=== PATIENT | female | born 1945 | race Caucasian/White ===

== ENCOUNTER 2017-02-24 10:30 | Outpatient (CLI) | payer MEDICARE, BC ==
--- NOTE | 2017-02-28 17:45 | Mammography Report ---
DIGITAL SCREENING MAMMOGRAM: 02/24/2017 CLINICAL INDICATION: A 71-year-old for screening. COMPARISON: 10/2013, 07/2012, 12/2011, 11/2010, 11/2009, 11/2008, 07/2007. TECHNIQUE: Routine CC and MLO projections were obtained of the breasts. The breasts again demonstrate scattered fibroglandular densities bilaterally. Punctate, typically be nign calcifications are present. No suspicious masses, clustered microcalcifications, or regions of architectural distortion are identified. IMPRESSION: BENIGN FINDINGS. RECOMMENDATION: ROUTINE ANNUAL SCREENING UNLESS OTHERWISE CLINICALLY INDICATED. BIRADS CATEGORY: 2, BENIGN FINDINGS. STANDARD QUALIFYING STATEMENTS 1. This examination was reviewed with the aid of Computed-Aided Detection (CAD). 2. A negative or benign imaging report should not delay biopsy if clinically suspicious findings are present. Consider surgical consultation if warranted. More than 5% of cancers are not identified b y imaging. 3. Dense breasts may obscure an underlying neoplasm. JOB #: [id number] EXT JOB #:[id number]
== END 2017-02-24 10:31 | disposition home or self-care (01) ==
LOC: DI 10:30
PROVIDERS: ATTEND Physician Assistant
DX: Z12.31 Encounter for screening mammogram for malignant neoplasm of breast (principal)
CPT/HCPCS: 77067

== ENCOUNTER 2017-02-24 10:33 | Outpatient (CLI) | payer MEDICARE, BC ==
--- NOTE | 2017-02-28 16:51 | DEXA Report ---
DEXA SCAN: 02/24/2017 CLINICAL INDICATION: Postmenopausal. TECHNIQUE: Dual energy x-ray absorptiometry (DXA) was performed on a SUPR system. Regions measured are the AP spine, femoral neck, and, if needed, forearm. COMPARISON: None. In accordance with the International Society for Clinical Densitometry (ISCD) guidelines, data from previous exams may be reanalyzed using current recommendations and techniques. This is done to allow a more accurate basis for comparison with the current study. FINDINGS: The data for the lumbar spine is as follows: REGION BMD (g/cm/cm) T-SCORE Z-SCORE L1 0.952 -1.5 -0.5 L2 1.069 -1.1 -0.1 L3 1.187 -0.1 0.9 L4 1.184 -0.1 0.8 TOTAL 1.110 -0.6 0.4 NOTE: All evaluable vertebrae are used for classification. The data for the hip is as follows: REGION BMD (g/cm/cm) T-SCORE Z-SCORE Neck 0.864 -1.3 0.0 TOTAL 0.884 -1.0 0.0 NOTE: The femoral neck or total proximal femur, whichever is lowest, is used for classification. * Denotes significant change at the 95% confidence level. Denotes dissimilar scan types or analysis methods. IMPRESSION: THE WHO CLASSIFICATION BASED ON THE INTERNATIONAL REFERENCE STANDARD IS OSTEOPENIA. THE FRACTURE RISK IS INCREASED. RECOMMENDATION: Patients with diagnosis of osteoporosis or osteopenia should have regular bone mineral density assessment. For those eligible for Medicare, routine testing is allowed once every 2 years. Testing frequency can be increased for patients who have rapidly progressing disease or for those who are receiving medical therapy to restore bone mass. COMMENT: World Health Organization (WHO) definitions for osteoporosis and osteopenia: NORMAL BMD: T-score at -1.0 or higher, fracture risk is low. OSTEOPENIA BMD: T-score between -1.0 and -2.5, fracture risk is increased. OSTEOPOROSIS BMD: T-score at -2.5 or lower, fracture risk high. National Osteoporosis Foundation recommends: 1. Obtain adequate dietary calcium (at least 1200 mg per day) and vitamin D (400 -800 international units per day). 2. Participate, as appropriate, in regular weightbearing and muscle- strengthening exercise. 3. Avoid tobacco use and reduce alcohol and caffeine intake. 4. For more detailed information see the website at www.NOF.org. MTDD
== END 2017-02-24 10:34 | disposition home or self-care (01) ==
LOC: DI 10:33
PROVIDERS: ATTEND Physician Assistant
DX: M85.88 Other specified disorders of bone density and structure, other site (principal); N95.8 Other specified menopausal and perimenopausal disorders
CPT/HCPCS: 77080

== ENCOUNTER 2018-06-08 14:48 | Outpatient (CLI) | payer MEDICARE, BC ==
--- NOTE | 2018-06-22 18:22 | Mammography Report ---
Reason: ROUTINE MAMMO Procedure Date: 06/08/2018 Accession Number: [id number] / [id number] Procedure: RUTH - Screening Mammo w/Delvis CPT Code: FULL RESULT: EXAM: Screening Mammo w/Delvis DATE: 06/08/2018 3:27 PM CLINICAL HISTORY: 72-year-old female presents for screening mammography. TECHNIQUE: Bilateral CC and MLO views were obtained. COMPARISON: No outside studies are available for comparison. FINDINGS: The breasts demonstrate scattered fibroglandular densities bilaterally. Typically benign coarse calcifications are seen bilaterally. Typically benign vascular calcifications are seen in the right breast. There is a multilobulated ill-defined mass with a cluster of microcalcification which is best seen on the cc projection tomogram of the right breast on the 39 mm slice the upper central right breast. This requires additional imaging including diagnostic ultrasound. IMPRESSION: Incomplete examination RECOMMENDATION: Additional evaluation as above. BIRADS CATEGORY 0: Incomplete examination STANDARD QUALIFYING STATEMENTS: 1. This examination was not reviewed with the aid of Computer-Aided Detection (CAD). 2. A negative or benign imaging report should not delay biopsy if clinically suspicious findings are present. Consider surgical consultation if warrented. More than 5% of cancers are not identified by imaging. 3. Dense breasts may obscure an underlying neoplasm. 4. This examination was reviewed with the aid of 3D imaging (tomography).
== END 2018-06-08 14:49 | disposition home or self-care (01) ==
LOC: DI 14:48
PROVIDERS: ATTEND Physician Assistant
DX: Z12.31 Encounter for screening mammogram for malignant neoplasm of breast (principal); R92.0 Mammographic microcalcification found on diagnostic imaging of breast
CPT/HCPCS: 77063; 77067

== ENCOUNTER 2018-07-16 12:33 | Outpatient (CLI) | payer MEDICARE, BC ==
--- NOTE | 2018-07-17 12:44 | Mammography Report ---
Reason: ABN MAMMO - RT SPEC VIEWS Procedure Date: 07/16/2018 Accession Number: [id number] / [id number] Procedure: RUTH - Diag Special Views Dig RT CPT Code: FULL RESULT: EXAM: Diag Special Views Dig RT DATE: 07/16/2018 1:49 PM CLINICAL HISTORY: Follow-up abnormal mammogram right breast ADDITIONAL VIEWS RIGHT BREAST: TECHNIQUE: Additional magnification views are obtained of the right breast. COMPARISON: June 08, 2018 mammogram FINDINGS: No suspicious microcalcifications are identified. RIGHT BREAST ULTRASOUND: TECHNIQUE: Real-time scanning by the seed potato cutter with saved static images reviewed. FINDINGS: In the 11:00 position right breast 3 to 4 cm from the nipple there are 2 adjacent simple cysts one measuring 5 x 4 x 5 mm and the other 6 x 3 x 5 mm. No solid mass is seen. IMPRESSION: Benign findings RECOMMENDATION: Follow-up right breast mammogram in 6 months. BIRADS CATEGORY 2: Benign findings STANDARD QUALIFYING STATEMENTS: 1. This examination was reviewed with the aid of Computer-Aided Detection (CAD). 2. A negative or benign imaging report should not delay biopsy if clinically suspicious findings are present. Consider surgical consultation if warrented. More than 5% of cancers are not identified by imaging. 3. Dense breasts may obscure an underlying neoplasm.
== END 2018-07-16 12:34 | disposition home or self-care (01) ==
LOC: DI 12:33
PROVIDERS: ATTEND Physician Assistant
DX: R92.8 Other abnormal and inconclusive findings on diagnostic imaging of breast (principal)
CPT/HCPCS: 76642

== ENCOUNTER 2019-01-30 12:29 | Outpatient (CLI) | payer MEDICARE, BC ==
--- NOTE | 2019-01-30 14:41 | Mammography Report ---
Reason: 6 MO F/U - ABNORMAL MAMMOGRAM Procedure Date: 01/30/2019 Accession Number: [id number] / [id number] Procedure: RUTH - Diagnostic Dig RT CPT Code: FULL RESULT: EXAM: Diagnostic Dig RT DATE: 01/30/2019 1:01 PM CLINICAL HISTORY: Six-month follow-up abnormal mammogram TECHNIQUE: (R) - Right CC and MLO views were obtained. COMPARISON: 07/16/2018, 06/28/2018, 02/24/2017, 10/11/2013 PARENCHYMAL PATTERN: (A) - The breasts demonstrate scattered fibroglandular densities bilaterally. FINDINGS: There is no significant interval change. There are no suspicious masses, calcifications, or areas of distortion. IMPRESSION: Negative examination. BI-RADS category 1. RECOMMENDATION: RETURN TO ROUTINE ANNUAL SCREENING IN 6 MONTHS. BI-RADS CATEGORY: 1 STANDARD QUALIFYING STATEMENTS: 1. This examination was not reviewed with the aid of Computer-Aided Detection (CAD). 2. A negative or benign imaging report should not preclude biopsy if clinically suspicious findings are present. 3. Dense breasts may obscure an underlying neoplasm. 4. This examination was reviewed with the aid of 3D breast imaging (tomosynthesis).
== END 2019-01-30 12:30 | disposition home or self-care (01) ==
LOC: DI 12:29
PROVIDERS: ATTEND Physician Assistant
DX: R92.8 Other abnormal and inconclusive findings on diagnostic imaging of breast (principal)

== ENCOUNTER 2020-11-12 13:35 | Outpatient (CLI) | payer MEDICARE, BC ==
--- NOTE | 2020-11-13 10:45 | Mammography Report ---
BILATERAL DIGITAL SCREENING MAMMOGRAM 3D/2D: 11/12/2020 CLINICAL: Routine screening. Routine screening. Comparison is made to exams dated: 01/30/2019 mammogram, 07/06/2018 mammogram, 06/08/2018 mammogram, 02/24 mammogram, and 10/11/2013 mammogram - [facility]. There are scattered fibrogl andular elements in both breasts. No significant masses, calcifications, or other findings are seen in either breast. There has been no significant interval change. IMPRESSION: NEGATIVE There is no mammographic evidence of malignancy. A 1 year screening mammogram is recommended. This exam was interpreted at Station ID: [id number]. NOTE: For mammograms, a report in lay terms will be sent to the patient. Approximately 15% of breast malignancies will not be visualized mammographically. In the management of a palpable breast mass, a negative mammogram must not discourage biopsy of a clinically suspicious lesion. Electronically Signed By: Omar Esposito M.D. [facility] [place]:11/12/2020 14:48:17 ACR BI-RADS Category 1: Negative 3341F PARENCHYMAL PATTERN: (A) - The breast(s) demonstrate(s) scattered fibroglandular densities. BI-RADS CATEGORY: (1) - 1 RECOMMENDATION: (ANNUAL) - Recommend routine annual screening mammography. [id number] 1 year screening LATERALITY: (B)
== END 2020-11-12 13:36 | disposition home or self-care (01) ==
LOC: DI 13:35
PROVIDERS: ATTEND Registered Nurse
DX: Z12.31 Encounter for screening mammogram for malignant neoplasm of breast (principal)

== ENCOUNTER 2020-11-12 13:37 | Outpatient (CLI) | payer MEDICARE, BC ==
--- NOTE | 2020-11-12 17:13 | DEXA Report ---
PROCEDURE: Dexa Spine and/or Hip INDICATIONS: OSTEOPENIA TECHNIQUE: Dual energy x-ray absorptiometry (DXA) was performed on a [employer] System. Regions measur ed are the AP Spine, femoral neck, and if needed forearm. COMPARISON: 02/24/2017 FINDINGS: Lumbar Spine: Bone Mineral Density 1.1-5 g/cm/cm,T score -0.5, normal bone density Left Femoral Neck: Bone Mineral Density 0.818 g/cm/cm, T score -1.6, osteopenia (T score greater or equal to -1.0: NORMAL) (T score from -1.1 to -2.4: OSTEOPENIA) (T score less than or equal to -2.5 to: OSTEOPOROSIS) Impression: Osteopenia. Patient is at increased risk for fracture. Patients with diagnosis of osteoporosis or osteopenia should have regular bone mineral density assess ment. For those eligible for Medicare, routine testing is allowed once every 2 years. Testing frequ ency can be increased for patients who have rapidly progressing disease or for those who are receivin g medical therapy to restore bone mass. Reviewed by: Froy Noonan MD on 11/12/2020 5:12 PM PST Approved by: Froy Noonan MD on 11/12/2020 5:12 PM PST Station ID: [id number]
== END 2020-11-12 13:38 | disposition home or self-care (01) ==
LOC: DI 13:37
PROVIDERS: ATTEND Registered Nurse
DX: M85.88 Other specified disorders of bone density and structure, other site (principal)

== ENCOUNTER 2021-05-05 10:17 | Outpatient (CLI) | payer MEDICARE, BC ==
--- NOTE | 2021-05-05 14:41 | XRAY Report ---
PROCEDURE: Lumbar Spine 2 View INDICATIONS: LOW BACK PAIN TECHNIQUE: 3 views of the lumbar spine were acquired. COMPARISON: None. FINDINGS: Bones: 5 [id number] vertebrae are present. There is mild L4-L5 anterolisthesis secondary to fa cet hypertrophy. There is mild convex left lumbar spine curvature. No vertebral body compression frac tures. No suspicious bony lesions. Mild degenerative disc changes noted throughout the lumbar spine. Mild L4-L5 and L5-S1 facet arthropathy. Soft tissues: Overlying bowel gas pattern is normal. No suspicious soft tissue calcifications. IMPRESSION: 1. Mild multilevel degenerative disc disease. 2. Mild multilevel facet arthropathy. 3. Grade 1 L4-L5 degenerative spondylolisthesis. 4. No fracture. No acute osseous lesion. If there is continued clinical concern for pathology, then M RI should be considered for further evaluation. Reviewed by: Mai Humphries MD, PhD on 05/05/2021 2:40 PM PDT Approved by: Mai Humphries MD, PhD on 05/05/2021 2:40 PM PDT Station ID: [id number]
[2021-05-05 14:57] LABS: BASOPHILS # (AUTO) 0.1 10^3/uL (0.0-0.1); BASOPHILS % (AUTO) 1.7 %; EOSINOPHILS # (AUTO) 0.3 10^3/uL (0.0-0.7); HCT - HEMATOCRIT 42.1 % (37.0-47.0); HGB - HEMOGLOBIN 13.1 g/dL (12.0-16.0); LYMPHOCYTES # (AUTO) 1.1 10^3/uL (1.5-3.5); LYMPHOCYTES % (AUTO) 20.8 %; MEAN CORPUSCULAR HEMOGLOBIN 30.3 pg (27.0-31.0); MEAN CORPUSCULAR HGB CONC 31.1 g/dL (32.0-36.0); MEAN CORPUSCULAR VOLUME 97.5 fL (81.0-99.0); MEAN PLATELET VOLUME 12.4 fL (7.9-10.8); MONOCYTES # (AUTO) 0.5 10^3/uL (0.0-1.0); MONOCYTES % (AUTO) 8.6 %; NEUTROPHILS # (AUTO) 3.3 10^3/uL (1.5-6.6); NEUTROPHILS % (AUTO) 62.5 %; PLT - PLATELET COUNT 172 10^3/uL (130-450); RED BLOOD COUNT 4.32 10^6/uL (4.20-5.40); RED CELL DISTRIBUTION WIDTH 12.8 % (12.0-15.0); WHITE BLOOD COUNT 5.3 x10^3/uL (4.8-10.8)
[2021-05-05 15:32] LABS: ALBUMIN/GLOBULIN RATIO 1.2 (1.0-2.2); ALKALINE PHOSPHATASE 47 IU/L (42-121); ALT ALANINE AMINOTRANSFERASE 27 IU/L (10-60); AST ASPARTATE AMINOTRANSFERASE 25 IU/L (10-42); BUN - BLOOD UREA NITROGEN 20 mg/dL (6-20); CALCIUM 9.1 mg/dL (8.5-10.3); CARBON DIOXIDE - CO2 27 mmol/L (21-32); CHLORIDE 104 mmol/L (101-111); CHOL/HDL RATIO 3.5 (<4.4); CHOLESTEROL 208 mg/dL; CREATININE 1.1 mg/dL (0.4-1.0); GFR - MDRD 48 (>89); GLUCOSE 97 mg/dL (70-100); HDL CHOLESTEROL 59 mg/dL; LDL CHOLESTEROL,CALCULATED 109 mg/dL; LDL/HDL RATIO 1.8 (<4.4); POTASSIUM 4.1 mmol/L (3.5-5.0); SODIUM 140 mmol/L (135-145); TOTAL PROTEIN 7.3 g/dL (6.7-8.2); TRIGLYCERIDES 199 mg/dL; VLDL CHOLESTEROL 40 mg/dL
[2021-05-05 15:43] LABS: CRP - C-REACTIVE PROTEIN < 1.0 mg/dL (0-1.0)
[2021-05-05 20:04] LABS: ESTIMATED AVERAGE GLUCOSE 100 mg/dL (70-100); HEMOGLOBIN A1c% 5.1 % (4.27-6.07)
== END 2021-05-05 10:18 | disposition home or self-care (01) ==
LOC: DI.S 10:17
PROVIDERS: ATTEND Registered Nurse
DX: M43.16 Spondylolisthesis, lumbar region (principal); M47.816 Spondylosis without myelopathy or radiculopathy, lumbar region; M47.817 Spondylosis without myelopathy or radiculopathy, lumbosacral region; M51.36 Other intervertebral disc degeneration, lumbar region; M54.5 Low back pain; E78.5 Hyperlipidemia, unspecified; R73.01 Impaired fasting glucose; Z76.89 Persons encountering health services in other specified circumstances; M06.4 Inflammatory polyarthropathy; R53.83 Other fatigue
CPT/HCPCS: 36415; 80053; 80061; 81599; 83036; 83721; 85025; 85651; 86140; 86900; 86901

== ENCOUNTER 2022-06-23 15:27 | Emergency (ER) | payer MEDICARE, BC ==
--- NOTE | 2022-06-23 15:48 | ED Physician Documentation ---
PD HPI HEAD INJURY - Stated complaint Stated Complaint: HEAD PX - Chief complaint Chief Complaint: Trauma Hd/Nk - History obtained from History obtained from: Patient - History of Present Illness Mechanism of head injury: Fell (tripped in parking lot coming out from dentist office. Struck back right of head. Does not believe LOC. Slight dazed for few minutes, then felt well [place] and [place] Where head injury occurred: Other (parking garage coming from dentist office in [place]; she felt well enough in few minutes to get in car and [place] and then [place] Timing - onset: How many hours ago (few), Today Location of injury: Right, Back Quality of pain: Throbbing, Aching Associated symptoms: Neck pain, Other (headache that has increased the past hour or so. Also noting pains in right lateral gluteal muscles and some in mid back to right/across thoracolumbar area. Not midline per se. Did not hurt initially.). No: LOC (she does not believe LOC but was by herself so not known per se. She believes just dazed for few seconds.), Nausea / vomiting, Paresthesias Symptoms worsen with: Palpation Contributing factors: No: Anticoagulated, Intoxicated Similar symptoms before: Has not had sx before Recently seen: Clinic (dental clinic cleaning earlier today.) Review of Systems Constitutional: denies: Fever Nose: denies: Rhinorrhea / runny nose, Congestion Throat: denies: Sore throat Cardiac: denies: Chest pain / pressure Respiratory: denies: Cough GI: denies: Abdominal Pain Skin: denies: Abrasion (s), Laceration (s) Neurologic: reports: Headache. denies: Focal weakness, Confused, Altered mental status PD PAST MEDICAL HISTORY - Past Medical History Cardiovascular: None Respiratory: None Neuro: None - Allergies Allergies/Adverse Reactions: Allergies Allergy/AdvReac Type Severity Reaction Status Date / Time Penicillins Allergy Hives Verified 06/23/22 15:39 - Living Situation Living Situation: reports: With spouse/s.o. Living Arrangement: reports: At home - Social History Does the pt smoke?: No PD ED PE NORMAL - Vitals Vital signs reviewed: Yes - General General: Alert and oriented X 3, No acute distress, Well developed/nourished - HEENT HEENT: PERRL, EOMI, Other (right posterior scalp with local swelling and tenderness c/w hematoma. No lacerations. ) - Neck Neck: Supple, no meningeal sign, No adenopathy, Other (some tenderness in mid to lower neck mainly muscles but some midline. ) - Cardiac Cardiac: RRR, No murmur - Respiratory Respiratory: Clear bilaterally, Other (no chestwall tenderness) - Abdomen Abdomen: Soft, Non tender - Derm Derm: Normal color, Warm and dry - Extremities Extremities: Other (right lateral hip/gluteal area with soft tissue tenderness. No bony tnederness. Small superficial abrasion right lower ferrera without bony tenderness, and good ROM. ) - Neuro Neuro: Alert and oriented X 3, layout man 2-12 intact, No motor deficit, No sensory deficit, Normal speech, Other Eye Opening: Spontaneous Motor: Obeys Commands Verbal: Oriented GCS Score: 15 - Psych Psych: Normal mood Results - Vitals Vitals: Vital Signs - 24 hr 06/23/22 06/23/22 15:32 17:48 Temperature 36.4 C L 36.6 C Heart Rate 85 78 Respiratory 16 15 Rate Blood Pressure 127/57 L 133/59 H O2 Saturation 100 99 Oxygen O2 Source Room air - Rads (name of study) head CT Radiology: Prelim report reviewed (no ICH nor fractures. Scalp hematoma noted. Age related changes. ), See rad report cervical Spine CT Radiology: Prelim report reviewed (degenerative changes. No fractures. ), See rad report PD MEDICAL DECISION MAKING - ED course Complexity details: reviewed results, considered differential (persisting headache after fall/head injury. Initial mild concussive symptoms (possible LOC, felt dazed few minutes).), d/w patient Departure - Departure Disposition: 01 Home, Self Care Clinical Impression: Fall from slip, trip, or stumble Qualifiers: Encounter type: initial encounter Qualified Code(s): W01.0XXA - Fall on same level from slipping, tripping and stumbling without subsequent striking against object, initial encounter Scalp contusion Qualifiers: Encounter type: initial encounter Qualified Code(s): S00.03XA - Contusion of scalp, initial encounter Acute strain of neck muscle Qualifiers: Encounter type: initial encounter Qualified Code(s): S16.1XXA - Strain of muscle, fascia and tendon at neck level, initial encounter Contusion, buttock Qualifiers: Encounter type: initial encounter Qualified Code(s): S30.0XXA - Contusion of lower back and pelvis, initial encounter Condition: Stable Record reviewed to determine appropriate education?: Yes Instructions: ED Contusion Scalp, ED Sprain Strain Neck Comments: Your CT scans of the head and neck are without any acute abnormalities of bleeding or fractures. Cool towels or ice to the scalp will help with the swelling. For the neck and buttock and other sore areas, you can try cold/ice or heat and see which feels better. Tylenol ibuprofen as needed for pains. I would anticipate improvement over the next several days and resolved over 3 to 5 days or so. Discharge Date/Time: 06/23/22 17:54
[2022-06-23] MEDS ORDERED: ACETAMINOPHEN 325 MG TABLET PO STA (16:12)
[2022-06-23] MEDS ORDERED: IBUPROFEN 600 MG TABLET PO STA (16:12)
--- NOTE | 2022-06-23 17:08 | CT Report ---
PROCEDURE: CERVICAL SPINE WO INDICATIONS: fall, struck head; head/neck pain TECHNIQUE: Noncontrast 3 mm thick sections acquired from the skull base to the T4 level. Sagittal and coronal r eformats were then constructed. For radiation dose reduction, the following was used: automated exp osure control, adjustment of mA and/or kV according to patient size. COMPARISON: None. FINDINGS: Image quality: Excellent. Bones: No fractures or dislocations. Moderate degenerative disc height loss C5-6 and mild disc heigh t loss C4-5 and C6-7. There are dystrophic calcifications posteriorly to the disc levels from C4 thro ugh C7. Mild left-sided facet arthropathy from C2 through C5. Normal bone alignment. Visualized supe rior ribs are intact. Soft tissues: Prevertebral soft tissues are normal in thickness. No paravertebral hematomas. No ap ical pneumothoraces. Mild degenerative ligamentous calcification of the annular ligament. Moderate t o heavy bilateral carotid calcification. IMPRESSION: 1. No CT evidence of acute cervical spine trauma. 2. Mild degenerative cervical spine changes as described. 3. Bilateral carotid artery calcification. Reviewed by: Pallavi Johnson MD on 06/23/2022 5:06 PM PDT Approved by: Pallavi Johnson MD on 06/23/2022 5:06 PM PDT Station ID: [id number]
--- NOTE | 2022-06-23 17:27 | CT Report ---
PROCEDURE: CT brain without contrast INDICATIONS: fell, struck head; head/neck pain TECHNIQUE: Noncontrast 4.5 mm thick angled axial sections acquired from the foramen magnum to the vertex. For r adiation dose reduction, the following was used: automated exposure control, adjustment of mA and/or kV according to patient size. COMPARISON: None. FINDINGS: Image quality: Excellent. CSF spaces: Basal cisterns are patent. No extra-axial fluid collections. Ventricles are normal in size and shape. Brain: Atrophy and chronic ischemic change present without intracranial hemorrhage. Old left lacunar infarct noted in the lentiform nucleus. No mass effect Skull and face: Calvarium and visualized facial bones are intact, without suspicious lesions. Right posterior parietal scalp hematoma noted without underlying skull fracture. Sinuses: Visualized sinuses and mastoids are clear. IMPRESSION: Right parietal scalp hematoma without underlying skull fracture or intracranial hemorrhage. Atrophy and chronic ischemic change without acute hemorrhage or mass effect. Reviewed by: Tavares Ventura MD on 06/23/2022 4:26 PM AKDT Approved by: Tavares Ventura MD on 06/23/2022 4:26 PM AKDT Station ID: [id number]
[2022-06-23 17:48] VITALS: BP 133/59
== END 2022-06-23 17:54 | disposition home or self-care (01) ==
LOC: ED 15:27
DX: S00.03XA Contusion of scalp, initial encounter (principal); S16.1XXA Strain of muscle, fascia and tendon at neck level, initial encounter; S30.0XXA Contusion of lower back and pelvis, initial encounter; W01.0XXA Fall on same level from slipping, tripping and stumbling without subsequent striking against object, initial encounter; Y92.481 Parking lot as the place of occurrence of the external cause
CPT/HCPCS: 70450; 72125; 99284; A9270

== ENCOUNTER 2023-03-07 11:33 | Outpatient (CLI) | payer MEDICARE, BC ==
--- NOTE | 2023-03-07 16:20 | XRAY Report ---
PROCEDURE: Knee 3 View LT INDICATIONS: PAIN IN LEFT KNEE TECHNIQUE: 3 views of the left knee(s) were acquired. COMPARISON: None. FINDINGS: Bones: Normal mineralization. No fracture. Moderately decreased medial and lateral compartment joint space loss and marginal spur formation. Spurring at the patellofemoral compartment. Soft tissues: Small knee joint effusion. No suspicious soft tissue calcifications or masses. Medial and lateral compartment chondrocalcinosis. IMPRESSION: 1. Moderate tricompartment osteoarthritic changes and chondrocalcinosis raises the possibility of pse udogout or hyperparathyroidism. Correlate clinically. Reviewed by: Pallavi Johnson MD on 03/07/2023 4:19 PM PDT Approved by: Pallavi Johnson MD on 03/07/2023 4:19 PM PDT Station ID: [id number]
== END 2023-03-07 11:34 | disposition home or self-care (01) ==
LOC: DI.S 11:33
PROVIDERS: ATTEND Registered Nurse
DX: M17.12 Unilateral primary osteoarthritis, left knee (principal); M11.262 Other chondrocalcinosis, left knee

== ENCOUNTER 2024-04-23 12:37 | Outpatient (CLI) | payer MEDICARE, BC ==
--- NOTE | 2024-04-23 20:04 | Ultrasound Report ---
PROCEDURE: Soft Tissue Head or Neck INDICATIONS: SALIVARY GLAND SWELLING TECHNIQUE: Real-time scanning was performed of the submandibular regions, with image documentation. COMPARISON: None FINDINGS: Unremarkable submandibular glands. No significant enlargement. No mass or enlarged lymph n ode. IMPRESSION: No suspicious mass or lymphadenopathy. Reviewed by: Kody Nelson MD on 04/23/2024 8:02 PM PDT Approved by: Kody Nelson MD on 04/23/2024 8:02 PM PDT Station ID: [id number]
== END 2024-04-23 12:38 | disposition home or self-care (01) ==
LOC: DI 12:37
PROVIDERS: ATTEND Registered Nurse
DX: K11.9 Disease of salivary gland, unspecified (principal)